=== PATIENT | male | born 1960 | race Caucasian/White ===

== ENCOUNTER 2016-11-06 | Outpatient (CLI) | payer MEDICAID | END 2016-11-06 13:31 | disposition home or self-care (01) | DX: R60.0 Localized edema (principal) ==

== ENCOUNTER 2016-11-06 11:31 | Outpatient (CLI) | payer MEDICAID | END 2016-11-06 11:32 | disposition home or self-care (01) | DX: R60.0 Localized edema (principal); I51.7 Cardiomegaly ==

== ENCOUNTER 2016-11-06 13:06 | Outpatient (CLI) | payer MEDICAID | END 2016-11-06 13:07 | disposition home or self-care (01) | DX: E66.9 Obesity, unspecified (principal); R60.0 Localized edema; I51.7 Cardiomegaly ==

== ENCOUNTER 2016-12-16 13:28 | Outpatient (CLI) | payer MEDICAID | END 2016-12-16 13:29 | disposition home or self-care (01) | DX: R60.0 Localized edema (principal); I51.7 Cardiomegaly ==

== ENCOUNTER 2017-01-31 08:00 | Outpatient (CLI) | payer MEDICAID | END 2017-01-31 23:59 | disposition home or self-care (01) | DX: I10 Essential (primary) hypertension (principal); I51.7 Cardiomegaly; I49.3 Ventricular premature depolarization; I44.0 Atrioventricular block, first degree; I77.810 Thoracic aortic ectasia; G47.33 Obstructive sleep apnea (adult) (pediatric) ==

== ENCOUNTER 2017-10-21 03:01 | Emergency (ER) | payer SELFPAY ==
[2017-10-21] MEDS ORDERED: ONDANSETRON 4 MG/2 ML VIAL IVP STA (03:29)
[2017-10-21] MEDS ORDERED: KETOROLAC 60 MG/2 ML VIAL IVP STA (03:29)
--- NOTE | 2017-10-21 03:29 | ED Physician Documentation ---
PD HPI ABD PAIN - Stated complaint Stated Complaint: ABDOMINAL PAIN - Chief complaint Chief Complaint: Abd Pain - History obtained from History obtained from: Patient, Family - History of Present Illness Timing - onset: Enter time (0200), Today Timing - duration: Minutes Timing - details: Abrupt onset, Still present in ED Pain level max: 10 Pain level now: 6 Quality: Sharp, Pain Location: LLQ Radiation: Left flank Improved by: Position Worsened by: Other (nothing) Associated symptoms: Nausea. No: Vomiting Similar symptoms before: Has not had sx before Recently seen: Not recently seen - Additional information Additional information: 57-year-old male with history of hypertension morbid obesity and peripheral edema has developed acute left-sided abdominal pain radiating to his left flank that woke him from sleep this morning. He did feel the pain was improved by putting on his left shoe but the pain has undulated and is now at about an 8. He has never had anything like this and he did not feel ill in any way when he went to bed or earlier in the week. Review of Systems Constitutional: denies: Fever, Chills, Myalgias Eyes: denies: Decreased vision Ears: denies: Ear pain Nose: denies: Congestion Throat: denies: Sore throat Cardiac: denies: Chest pain / pressure, Palpitations Respiratory: denies: Dyspnea, Cough GI: reports: Abdominal Pain, Nausea. denies: Vomiting, Constipation, Diarrhea : denies: Dysuria, Frequency Skin: denies: Rash Musculoskeletal: reports: Back pain. denies: Neck pain, Extremity pain Neurologic: denies: Generalized weakness, Focal weakness, Numbness PD PAST MEDICAL HISTORY - Past Medical History Past Medical History: No Cardiovascular: Hypertension, Other Respiratory: None Neuro: None Endocrine/Autoimmune: None GI: None : None HEENT: None Psych: None Musculoskeletal: None Derm: None - Present Medications Home Medications: Ambulatory Orders Medication Instructions Recorded Confirmed No Known Home Medications [No 10/21/17 10/21/17 Known Home Medications] - Allergies Allergies/Adverse Reactions: Allergies Allergy/AdvReac Type Severity Reaction Status Date / Time No Known Drug Allergies Allergy Verified 10/21/17 03:08 - Social History Does the pt smoke?: No Smoking Status: Never smoker PD ED PE NORMAL - Vitals Vital signs reviewed: Yes (hypertensive) - General General: Alert and oriented X 3, No acute distress, Well developed/nourished - HEENT HEENT: Atraumatic, PERRL, EOMI - Neck Neck: Supple, no meningeal sign, No bony TTP - Cardiac Cardiac: RRR, No murmur - Respiratory Respiratory: No respiratory distress, Clear bilaterally - Abdomen Abdomen: Soft, Non tender - Back Back: No CVA TTP, No spinal TTP - Derm Derm: Normal color, Warm and dry, No rash - Extremities Extremities: No deformity, No edema - Neuro Neuro: No motor deficit, No sensory deficit Eye Opening: Spontaneous Motor: Obeys Commands Verbal: Oriented GCS Score: 15 - Psych Psych: Normal mood, Normal affect Results - Vitals Vitals: Vital Signs - 24 hr 10/21/17 10/21/17 10/21/17 03:04 04:31 05:49 Temperature 36.3 C L Heart Rate 88 69 70 Respiratory 18 18 18 Rate Blood Pressure 183/120 H 139/96 H 138/94 H O2 Saturation 96 94 95 Oxygen O2 Source Room air - Labs Labs: Laboratory Tests 10/21/17 10/21/17 10/21/17 03:24 03:24 03:24 WBC 9.9 RBC 4.55 L Hgb 14.5 Hct 42.5 MCV 93.5 MCH 31.8 H MCHC 34.1 RDW 13.4 Plt Count 302 MPV 9.1 Neut # 5.3 Lymph # 3.4 Hardy # 0.7 Eos # 0.3 Baso # 0.1 Absolute Nucleated RBC 0.00 Nucleated RBC % 0.0 Sodium 142 Potassium 3.5 Chloride 106 Carbon Dioxide 27 Anion Gap 9.0 BUN 21 H Creatinine 0.8 Estimated GFR (MDRD) 100 Glucose 104 H Calcium 9.1 Total Bilirubin 0.5 AST 22 ALT 25 Alkaline Phosphatase 106 Troponin I 0.04 Total Protein 8.2 Albumin 4.4 Globulin 3.8 Albumin/Globulin Ratio 1.2 Lipase 19 L Urine Color Urine Clarity Urine pH Ur Specific [place] Urine Protein Urine Glucose (UA) Urine Ketones Urine Occult Blood Urine Nitrite Urine Bilirubin Urine Urobilinogen Ur Leukocyte Esterase Urine RBC Urine WBC Ur Squamous Epith Cells Urine Bacteria Urine Mucus Ur Microscopic Review Urine Culture Comments 10/21/17 04:52 WBC RBC Hgb Hct MCV MCH MCHC RDW Plt Count MPV Neut # Lymph # Hardy # Eos # Baso # Absolute Nucleated RBC Nucleated RBC % Sodium Potassium Chloride Carbon Dioxide Anion Gap BUN Creatinine Estimated GFR (MDRD) Glucose Calcium Total Bilirubin AST ALT Alkaline Phosphatase Troponin I Total Protein Albumin Globulin Albumin/Globulin Ratio Lipase Urine Color YELLOW Urine Clarity CLEAR Urine pH 6.0 Ur Specific [place] >=1.030 H Urine Protein NEGATIVE Urine Glucose (UA) NEGATIVE Urine Ketones NEGATIVE Urine Occult Blood LARGE H Urine Nitrite NEGATIVE Urine Bilirubin NEGATIVE Urine Urobilinogen 0.2 (NORMAL) Ur Leukocyte Esterase NEGATIVE Urine RBC TNTC H Urine WBC 0-3 Ur Squamous Epith Cells RARE Squamous Urine Bacteria Rare Urine Mucus Few Strands Ur Microscopic Review INDICATED Urine Culture Comments NOT INDICATED - Rads (name of study) CT abdomen pelvis without Radiology: Prelim report reviewed (Impression: 1. There is a 3 mm stone in the urinary bladder which has presumably has passed from the left ureter. 2. Small nonobstructing stones in both kidneys.), EMP read indepedently, See rad report Procedures - Bedside sono Bedside sono by EMP: With use of bedside ultrasound the left kidney is imaged with evidence of mild hydronephrosis and it is sonographically nontender. PD MEDICAL DECISION MAKING - ED course Complexity details: reviewed results, re-evaluated patient, considered differential, d/w patient, d/w family ED course: 57-year-old male with acute left flank pain Is given an injection of Toradol prior to going to CT scan. While at the CT scan he had resolution of his pain. The CT scan shows a stone in the bladder. About 3 mm. Departure - Departure Disposition: 01 Home, Self Care Clinical Impression: Ureterolithiasis Condition: Stable Instructions: ED Stone Renal Passed Follow-Up: Neel Hadley PA-C [Primary Care Provider] - Discharge Date/Time: 10/21/17 05:51
[2017-10-21 03:32] LABS: BASOPHILS # (AUTO) 0.1 10^3/uL (0.0-0.1); BASOPHILS % (AUTO) 1.2 %; EOSINOPHILS # (AUTO) 0.3 10^3/uL (0.0-0.7); EOSINOPHILS % (AUTO) 3.4 %; HCT - HEMATOCRIT 42.5 % (42.0-52.0); HGB - HEMOGLOBIN 14.5 g/dL (14.0-18.0); LYMPHOCYTES # (AUTO) 3.4 10^3/uL (1.5-3.5); LYMPHOCYTES % (AUTO) 34.3 %; MEAN CORPUSCULAR HEMOGLOBIN 31.8 pg (27.0-31.0); MEAN CORPUSCULAR HGB CONC 34.1 g/dL (32.0-36.0); MEAN CORPUSCULAR VOLUME 93.5 fL (80.0-94.0); MEAN PLATELET VOLUME 9.1 fL (7.4-11.4); MONOCYTES # (AUTO) 0.7 10^3/uL (0.0-1.0); MONOCYTES % (AUTO) 7.5 %; NEUTROPHILS # (AUTO) 5.3 10^3/uL (1.5-6.6); NEUTROPHILS % (AUTO) 53.6 %; RED BLOOD COUNT 4.55 10^6/uL (4.70-6.10); RED CELL DISTRIBUTION WIDTH 13.4 % (12.0-15.0); UNCORRECTED WHITE BLOOD COUNT 9.9 x10^3/uL; WHITE BLOOD COUNT 9.9 x10^3/uL (4.8-10.8)
[2017-10-21 03:44] LABS: ALBUMIN/GLOBULIN RATIO 1.2 (1.0-2.2); BILIRUBIN,TOTAL 0.5 mg/dL (0.2-1.0); CALCIUM 9.1 mg/dL (8.5-10.3); CREATININE 0.8 mg/dL (0.6-1.2); POTASSIUM 3.5 mmol/L (3.5-5.0); TOTAL PROTEIN 8.2 g/dL (6.7-8.2)
--- NOTE | 2017-10-21 04:04 | CT Preliminary Report ---
Exam: CT ABDOMEN/PELVIS W/O IMPRESSION: 1. There is a 3 mm stone in the urinary bladder which presumably has passed from the left ureter. 2. Small nonobstructing stones in both kidneys. [facility] SITE ID: [id number]
--- NOTE | 2017-10-21 04:07 | CT Report ---
EXAM: CT ABDOMEN AND PELVIS (CT KUB) EXAM DATE: 10/21/2017 03:51 AM. CLINICAL HISTORY: Left flank pain . COMPARISONS: None. TECHNIQUE: Routine axial helical CT imaging was performed through the abdomen and pelvis without IV c ontrast. Reconstructions: Coronal and sagittal. In accordance with CT protocol optimization, one or more of the following dose reduction techniques w ere utilized for this exam: automated exposure control, adjustment of mA and/or KV based on patient s ize, or use of iterative reconstructive technique. FINDINGS: Lung Bases: Unremarkable. Right Kidney/Ureter: Approximately 3 or 4 nonobstructing renal stones measuring up to 3 mm. No ureter al stone or obstructive uropathy seen. Left Kidney/Ureter: At least one nonobstructing renal stone measuring about 3 mm. No ureteral stones seen. Other Solid Organs: Noncontrast images of the solid organs are grossly unremarkable. Gallbladder/Bile Ducts: Unremarkable. Peritoneal Cavity: Colonic diverticulosis without evidence of diverticulitis. No bowel obstruction se en. No free air or free fluid. No lymphadenopathy seen. Appendix appears normal. Pelvic Organs: There is a 3 mm stone in the urinary bladder. Visualized pelvic organs are otherwise u nremarkable. Vasculature: Very mild atherosclerosis. No aortic aneurysm. Other: Degenerative changes in the spine. Mild spinal stenosis. IMPRESSION: 1. There is a 3 mm stone in the urinary bladder which presumably has passed from the left ureter. 2. Small nonobstructing stones in both kidneys. [facility] Referring Provider Line: [phone] SITE ID: [id number]
[2017-10-21] MEDS ORDERED: SODIUM CHLORIDE 0.9% 1,000 ML IV ONE (04:12)
[2017-10-21 04:58] LABS: BILIRUBIN,URINE NEGATIVE (NEGATIVE)
[2017-10-21 04:59] LABS: UA w/ MICROSCOPIC CHARGE YES
[2017-10-21 05:03] LABS: UR CULTURE IF IND NOT INDICATED; WBC,URINE 0-3 /HPF (0-3)
[2017-10-21 05:50] VITALS: BP 138/94
== END 2017-10-21 05:51 | disposition home or self-care (01) ==
LOC: ED 03:01
DX: N20.2 Calculus of kidney with calculus of ureter (principal); N21.0 Calculus in bladder; I10 Essential (primary) hypertension; E66.01 Morbid (severe) obesity due to excess calories
CPT/HCPCS: 36415; 74176; 80053; 81001; 81003; 83690; 84484; 85025; 87086; 96374; 96375; 99283

== ENCOUNTER 2017-11-22 18:07 | Emergency (ER) | payer SELFPAY ==
--- NOTE | 2017-11-22 19:16 | ED Physician Documentation ---
PD HPI ABD PAIN - Stated complaint Stated Complaint: NAUSEA/ABD/BX PX - Chief complaint Chief Complaint: Abd Pain - History obtained from History obtained from: Patient - History of Present Illness Timing - onset: How many hours ago (6), Today Timing - duration: Hours (6) Timing - details: Abrupt onset, Still present, Constant Quality: Aching, Sharp, Pain Location: RLQ Radiation: Right flank Associated symptoms: Nausea, Vomiting. No: Fever, Diarrhea, Constipation, Dysuria Similar symptoms before: Diagnosis (had similar with left ureteral stone recently and it passed in few hours. He had CT at the time and there were other renal stones, with largest being 3-4 mm.) Review of Systems Constitutional: denies: Fever, Chills Cardiac: denies: Chest pain / pressure Respiratory: denies: Dyspnea, Cough GI: reports: Abdominal Pain, Nausea, Vomiting. denies: Diarrhea : denies: Dysuria, Frequency PD PAST MEDICAL HISTORY - Past Medical History Cardiovascular: Hypertension, Other Respiratory: None Neuro: None Endocrine/Autoimmune: None GI: None : None HEENT: None Psych: None Musculoskeletal: None Derm: None - Present Medications Home Medications: Ambulatory Orders Medication Instructions Recorded Confirmed Dexamethasone [Decadron] 4 mg PO DAILY #5 tablet 11/22/17 Multivitamin [Multiple Vitamins] 1 each PO DAILY 11/22/17 11/22/17 Naproxen [Naprosyn] 500 mg PO BID PRN #20 tablet 11/22/17 Ondansetron Odt [Zofran] 4 mg TL Q6H PRN #15 tablet 11/22/17 Oxycodone HCl/Acetaminophen 1 each PO Q6H PRN #20 tablet 11/22/17 [Percocet 5-325 mg Tablet] Tamsulosin [Flomax] 0.4 mg PO DAILY #5 capsule 11/22/17 - Allergies Allergies/Adverse Reactions: Allergies Allergy/AdvReac Type Severity Reaction Status Date / Time No Known Drug Allergies Allergy Verified 11/22/17 18:15 - Social History Does the pt smoke?: No Smoking Status: Never smoker PD ED PE NORMAL - Vitals Vital signs reviewed: Yes - General General: Alert and oriented X 3, Well developed/nourished, Other (appears in considerable pain. Pacing and standing in the exam room. ) - HEENT HEENT: Pharynx benign - Neck Neck: Supple, no meningeal sign, No adenopathy - Cardiac Cardiac: RRR, No murmur - Respiratory Respiratory: Clear bilaterally - Abdomen Abdomen: Soft, Non tender, Non distended, No organomegaly - Male Male : Deferred - Rectal Rectal: Deferred - Back Back: No spinal TTP, Other (right CVA tenderness to percussion. ) - Derm Derm: Normal color, Warm and dry, No rash - Neuro Neuro: Alert and oriented X 3, No motor deficit, Normal speech Results - Vitals Vitals: Oxygen O2 Source Room air Oxygen Flow Rate 2 - Labs Labs: Laboratory Tests 11/22/17 20:45 Urine Color YELLOW Urine Clarity CLEAR Urine pH 5.5 Ur Specific [place] >=1.030 H Urine Protein NEGATIVE Urine Glucose (UA) NEGATIVE Urine Ketones TRACE Urine Occult Blood NEGATIVE Urine Nitrite NEGATIVE Urine Bilirubin NEGATIVE Urine Urobilinogen 0.2 (NORMAL) Ur Leukocyte Esterase NEGATIVE Ur Microscopic Review NOT INDICATED Urine Culture Comments NOT INDICATED PD MEDICAL DECISION MAKING - ED course Complexity details: reviewed old records, considered differential (has pain c/w renal colic and had passed stone on other side recently, with CT showing largest stones 3-4 mm. He improved with IV meds, and we talked about imaging and shared decision that did not need to repeat CT at this point. ), d/w patient Departure - Departure Disposition: 01 Home, Self Care Clinical Impression: Renal colic, Ureterolithiasis Condition: Stable Record reviewed to determine appropriate education?: Yes Instructions: ED Stone Renal W Colic Follow-Up: Neel Hadley PA-C [Primary Care Provider] - [facility] [Provider Group] Prescriptions: Dexamethasone [Decadron] 4 mg PO DAILY #5 tablet Naproxen [Naprosyn] 500 mg PO BID PRN #20 tablet PRN Reason: Pain Ondansetron Odt [Zofran] 4 mg TL Q6H PRN #15 tablet PRN Reason: Nausea / Vomiting Oxycodone HCl/Acetaminophen [Percocet 5-325 mg Tablet] 1 each PO Q6H PRN #20 tablet PRN Reason: Pain Tamsulosin [Flomax] 0.4 mg PO DAILY #5 capsule Comments: Drink lots of fluids but no reason to excessively hydrate. Use naproxen twice daily if needed for pain and add Percocet if needed. For inflammation take Decadron daily for the next few days until the stone passes. Tamsulosin tries to reduce ureter spasms for midsize stones like this and take it daily for the next several days until the stone passes. Add ondansetron if needed for nausea. Follow-up with your primary care or urology if not passed the stone over the next 2-3 days. Return sooner if severe symptoms again. Discharge Date/Time: 11/22/17 21:24
[2017-11-22] MEDS ORDERED: KETOROLAC 30 MG/ML VIAL IVP STA (19:27)
[2017-11-22] MEDS ORDERED: ONDANSETRON 4 MG/2 ML VIAL IVP STA (19:27)
[2017-11-22] MEDS ORDERED: HYDROmorphone 1 MG/ML SYRINGE IVP STA (19:27)
[2017-11-22] MEDS ORDERED: LIDOCAINE-MPF 2% 10 ML in SODIUM CHLORIDE 0.9% 50 ML IV STA (19:33)
[2017-11-22] MEDS ORDERED: SODIUM CHLORIDE 0.9% 1,000 ML IV ONE (19:34)
[2017-11-22] MEDS ORDERED: ONDANSETRON 4 MG/2 ML VIAL ONE (20:02)
[2017-11-22] MEDS ORDERED: LIDOCAINE-MPF 2% 5 ML VIAL ONE (20:03)
[2017-11-22 20:44] VITALS: BP 153/96
[2017-11-22] MEDS ORDERED: oxyCODONE/ACET 5/325 Prepack 4 PO STA (20:54)
[2017-11-22] MEDS ORDERED: ONDANSETRON ODT 4 MG Prepack 2 TL PRN (20:54)
[2017-11-22] MEDS ORDERED: TAMSULOSIN 0.4 MG CAPSULE PO STA (20:55)
[2017-11-22] MEDS ORDERED: DEXAMETHASONE 10 MG/ML VIAL IVP STA (20:55)
[2017-11-22 21:06] LABS: BILIRUBIN,URINE NEGATIVE (NEGATIVE); GLUCOSE, URINE (UA) NEGATIVE (NEGATIVE); KETONES,URINE (UA) TRACE mg/dL (NEGATIVE); LEUKOCYTE ESTERASE, URINE NEGATIVE (NEGATIVE); NITRITE,URINE NEGATIVE (NEGATIVE); OCCULT BLOOD,URINE NEGATIVE (NEGATIVE); PH,URINE 5.5 PH (5.0-7.5); PROTEIN,URINE NEGATIVE (NEGATIVE); UROBILINOGEN,URINE 0.2 (NORMAL) E.U./dL (NORMAL)
[2017-11-22 21:07] LABS: CLARITY,URINE CLEAR (CLEAR)
== END 2017-11-22 21:24 | disposition home or self-care (01) ==
LOC: ED 18:07
DX: N28.89 Other specified disorders of kidney and ureter (principal); I10 Essential (primary) hypertension
CPT/HCPCS: 36415; 81003; 99284; A9270; J1170; J7040; 81001; 87086

== ENCOUNTER 2019-05-19 09:59 | Outpatient (CLI) | payer OTHER ==
[2019-05-19 17:46] LABS: ALBUMIN 4.3 g/dL (3.2-5.5); ALBUMIN/GLOBULIN RATIO 1.1 (1.0-2.2); ALKALINE PHOSPHATASE 88 IU/L (42-121); ALT ALANINE AMINOTRANSFERASE 20 IU/L (10-60); AST ASPARTATE AMINOTRANSFERASE 21 IU/L (10-42); BILIRUBIN,TOTAL 0.7 mg/dL (0.2-1.0); BUN - BLOOD UREA NITROGEN 19 mg/dL (6-20); CARBON DIOXIDE - CO2 26 mmol/L (21-32); CHLORIDE 105 mmol/L (101-111); CHOL/HDL RATIO 3.4 (<5.0); CHOLESTEROL 172 mg/dL; CREATININE 0.8 mg/dL (0.6-1.2); GFR - MDRD 99 (>89); GLUCOSE 105 mg/dL (70-100); HDL CHOLESTEROL 51 mg/dL; LDL CHOLESTEROL,CALCULATED 101 mg/dL; SODIUM 141 mmol/L (135-145); TOTAL PROTEIN 8.3 g/dL (6.7-8.2); VLDL CHOLESTEROL 20 mg/dL
== END 2019-05-19 10:00 | disposition home or self-care (01) ==
LOC: LAB.S 09:59
PROVIDERS: ATTEND Internal Medicine
DX: E78.5 Hyperlipidemia, unspecified (principal)
CPT/HCPCS: 36415; 80053; 80061; 83721

== ENCOUNTER 2020-04-05 12:42 | Emergency (ER) | payer OTHER ==
[2020-04-05 12:54] VITALS: BP 173/104
--- NOTE | 2020-04-05 13:24 | ED Physician Documentation ---
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 Caused pain and pop feeling on lateral ribs/chest. Has continued with pain locally with lifting, reaching, deep breathing and palpation.) Timing - details: Abrupt onset Quality: Sharp, Pain. No: Pressure, Tightness Location: Left chest (midaxillary line about level of rib 6 or 7) Worsened by: No: Exertion, Inspiration Associated symptoms: No: Shortness of air, Nausea, Vomiting, Feeling faint / dizzy Similar symptoms before: Diagnosis (feels similar to rib fractures from years back.) Recently seen: Not recently seen Review of Systems Constitutional: denies: Fever, Chills Nose: denies: Rhinorrhea / runny nose, Congestion Throat: denies: Sore throat Cardiac: reports: Chest pain / pressure. denies: Palpitations, Pedal edema, Calf pain Respiratory: denies: Dyspnea, Cough GI: denies: Abdominal Pain, Nausea, Vomiting PD PAST MEDICAL HISTORY - Past Medical History Cardiovascular: Hypertension, Other Respiratory: None Endocrine/Autoimmune: None GI: None : None HEENT: None Psych: None Musculoskeletal: None Derm: None - Past Surgical History Past Surgical History: Yes - Present Medications Home Medications: Ambulatory Orders Medication Instructions Recorded Confirmed Multivitamin [Multiple Vitamins] 1 each PO DAILY 11/22/17 11/22/17 Naproxen [Naprosyn] 500 mg PO BID PRN #20 tablet 11/22/17 Ondansetron Odt [Zofran] 4 mg TL Q6H PRN #15 tablet 11/22/17 Oxycodone HCl/Acetaminophen 1 each PO Q6H PRN #20 tablet 11/22/17 [Percocet 5-325 mg Tablet] Tamsulosin [Flomax] 0.4 mg PO DAILY #5 capsule 11/22/17 dexAMETHasone [Decadron] 4 mg PO DAILY #5 tablet 11/22/17 - Allergies Allergies/Adverse Reactions: Allergies Allergy/AdvReac Type Severity Reaction Status Date / Time No Known Drug Allergies Allergy Verified 04/05/20 12:54 - Social History Does the pt smoke?: No Smoking Status: Never smoker Does the pt drink ETOH?: No Does the pt have substance abuse?: No - Immunizations Immunizations are current?: Yes - POLST Patient has POLST: No PD ED PE NORMAL - Vitals Vital signs reviewed: Yes - General General: Alert and oriented X 3, No acute distress, Well developed/nourished - Cardiac Cardiac: RRR, No murmur - Respiratory Respiratory: No respiratory distress, Clear bilaterally, Other (chestwall tenderness without crapitance left midaxillary line about rib 6-7) - Abdomen Abdomen: Soft, Non tender - Derm Derm: Normal color, Warm and dry - Extremities Extremities: Normal ROM s pain, No edema, No calf tenderness / cord - Neuro Neuro: Alert and oriented X 3, No motor deficit, Normal speech Results - Vitals Vitals: Vital Signs - 24 hr 04/05/20 12:49 Temperature 36.8 C Heart Rate 78 Respiratory 18 Rate Blood Pressure 173/104 H O2 Saturation 97 Oxygen O2 Source Room air - Rads (name of study) left ribs Radiology: Prelim report reviewed (nondisplaced fracture lateral rib 6), See rad report PD MEDICAL DECISION MAKING - ED course Complexity details: reviewed results, considered differential, d/w patient Departure - Departure Disposition: 01 Home, Self Care Clinical Impression: Rib fracture Qualifiers: Encounter type: initial encounter Rib fracture type: single rib Fracture type: closed Laterality: left Qualified Code(s): S22.32XA - Fracture of one rib, left side, initial encounter for closed fracture Condition: Stable Record reviewed to determine appropriate education?: Yes Instructions: ED Fx Rib Follow-Up: Mina Marmolejo MD [Primary Care Provider] - Comments: There is a single rib fracture on your x-ray. This should heal with conservative treatment of just avoiding activities that make it hurt. You can use some anti-inflammatory such as ibuprofen or naproxen 2-3 times a day regularly for the next several days to week to help take the edge off the discomfort. Add Tylenol if needed. This should improve steadily over the next week or 2 but take about 3 to 4 weeks to fully heal up. Forms: Activity restrictions Discharge Date/Time: 04/05/20 15:37
[2020-04-05] MEDS ORDERED: ACETAMINOPHEN 325 MG TABLET PO STA (13:53)
[2020-04-05] MEDS ORDERED: NAPROXEN 250 MG TABLET PO STA (13:53)
--- NOTE | 2020-04-05 15:09 | XRAY Report ---
Reason: left midaxillary ribs/chest injury Procedure Date: 04/05/2020 Accession Number: [id number] / [id number] Procedure: XR - Ribs w/PA Chest LT CPT Code: Final Report FULL RESULT: PROCEDURE: Ribs w/PA Chest LT INDICATIONS: left midaxillary ribs/chest injury TECHNIQUE: 4 views of the left ribs were acquired, along with a single view chest. COMPARISON: Chest radiograph dated 11/06/2016 FINDINGS: Surgical changes and devices: None. Bones and chest wall: Subtle cortical irregularity involving right lateral sixth rib is seen concerning for a nondisplaced right lateral sixth rib fracture. No other fracture or dislocation is seen. No suspicious bony lesions. Overlying soft tissues appear unremarkable. Lungs and pleura: No pleural effusions or pneumothorax. Lungs appear clear. Mediastinum: Mediastinal contours appear normal. Heart size is enlarged. IMPRESSION: Finding is concerning for subtle nondisplaced right lateral sixth rib fracture. No other fracture or dislocation. No acute cardiopulmonary pathology. Reviewed by: Joaquin Nassar MD on 04/05/2020 3:08 PM PDT Approved by: Joauqin Nassar MD on 04/05/2020 3:08 PM PDT Station ID: [id number]
== END 2020-04-05 15:37 | disposition home or self-care (01) ==
LOC: ED 12:42
DX: S22.32XA Fracture of one rib, left side, initial encounter for closed fracture (principal); X50.9XXA Other and unspecified overexertion or strenuous movements or postures, initial encounter; Y93.H2 Activity, gardening and landscaping; Y99.0 Civilian activity done for income or pay; I10 Essential (primary) hypertension
CPT/HCPCS: 99283; 99284

== ENCOUNTER 2020-07-22 07:10 | Observation (INO) | payer OTHER ==
[2020-07-22] MEDS ORDERED: FUROSEMIDE 20 MG/2 ML VIAL IVP STA (07:48)
[2020-07-22] MEDS ORDERED: METOPROLOL 5 MG/5 ML VIAL IVP STA ×2 (07:48→09:05)
[2020-07-22] MEDS ORDERED: DEXAMETHASONE 10 MG/ML VIAL IVP STA (07:51)
[2020-07-22] MEDS ORDERED: ALBUTEROL 1 PUFF INH STA (07:51)
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
--- NOTE | 2020-07-22 08:10 | XRAY Report ---
PROCEDURE: Chest 1 View X-Ray INDICATIONS: Chest pain TECHNIQUE: One view of the chest was acquired. COMPARISON: 04/05/2020 radiographs and 11/06/2016 chest radiograph. FINDINGS: Surgical changes and devices: None. Lungs and pleura: Increased interstitial and air space opacities, particularly in the lung bases. Asy mmetric right hilar fullness. Bilateral pleural effusions. Mediastinum: Enlarged cardiac mediastinal silhouette which is a new finding from the prior study. Per icardial effusion cannot be excluded. Bones and chest wall: No suspicious bony lesions. Overlying soft tissues appear unremarkable. IMPRESSION: Findings which are suggestive of cardiogenic pulmonary edema, moderate to severe. There may be a raheem cardial effusion is well. CT chest imaging recommended. Reviewed by: Roc Mckenzie MD on 07/22/2020 8:09 AM PDT Approved by: Roc Mckenzie MD on 07/22/2020 8:09 AM PDT Station ID: [id number]
[2020-07-22 08:20] LABS: ALBUMIN 3.7 g/dL (3.2-5.5); ALBUMIN/GLOBULIN RATIO 0.9 (1.0-2.2); BILIRUBIN,TOTAL 0.8 mg/dL (0.2-1.0); CREATININE 1.1 mg/dL (0.6-1.2); MAGNESIUM 2.1 mg/dL (1.7-2.8); TOTAL PROTEIN 7.6 g/dL (6.7-8.2)
[2020-07-22 08:24] LABS: BASOPHILS # (AUTO) 0.1 10^3/uL (0.0-0.1); BASOPHILS % (AUTO) 0.7 %; EOSINOPHILS # (AUTO) 0.1 10^3/uL (0.0-0.7); EOSINOPHILS % (AUTO) 1.6 %; HGB - HEMOGLOBIN 13.9 g/dL (14.0-18.0); LYMPHOCYTES # (AUTO) 1.5 10^3/uL (1.5-3.5); LYMPHOCYTES % (AUTO) 18.1 %; MEAN CORPUSCULAR HEMOGLOBIN 31.4 pg (27.0-31.0); MEAN PLATELET VOLUME 11.5 fL (7.4-11.4); MONOCYTES # (AUTO) 0.6 10^3/uL (0.0-1.0); MONOCYTES % (AUTO) 7.2 %; NEUTROPHILS # (AUTO) 6.2 10^3/uL (1.5-6.6); NEUTROPHILS % (AUTO) 72.2 %; PLT - PLATELET COUNT 286 10^3/uL (130-450); RED BLOOD COUNT 4.43 10^6/uL (4.70-6.10); RED CELL DISTRIBUTION WIDTH 14.1 % (12.0-15.0); WHITE BLOOD COUNT 8.5 x10^3/uL (4.8-10.8)
[2020-07-22] MEDS ORDERED: ONDANSETRON ODT 4 MG TABLET TL PRN (08:57)
[2020-07-22] MEDS ORDERED: ONDANSETRON 4 MG/2 ML VIAL IVP PRN (08:57)
[2020-07-22] MEDS ORDERED: SODIUM CHLORIDE FLUSH 0.9% 10 ML SYRINGE IVP PRN (08:57)
[2020-07-22] MEDS ORDERED: oxyCODONE 5 MG TABLET PO PRN (08:57)
[2020-07-22] MEDS ORDERED: ACETAMINOPHEN 325 MG TABLET PO PRN (08:57)
[2020-07-22] MEDS ORDERED: FUROSEMIDE 40 MG/4 ML VIAL IVP STA (09:05)
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
[2020-07-22] MEDS: METOPROLOL TARTRATE 25 MG TABLET PO SCH ×2 (11:32→21:22)
[2020-07-22] MEDS: ENOXAPARIN 40 MG/0.4 ML SYRINGE SUBQ SCH (11:33)
[2020-07-22] MEDS: SODIUM CHLORIDE FLUSH 0.9% 10 ML SYRINGE IVP SCH ×2 (11:33→17:11)
[2020-07-22] MEDS ORDERED: FUROSEMIDE 20 MG/2 ML VIAL IVP ONE (17:00)
[2020-07-22] MEDS ORDERED: IOVERSOL 320 100 ML VIAL IVP ONE ×2 (19:42→22:29)
[2020-07-23] MEDS: SODIUM CHLORIDE FLUSH 0.9% 10 ML SYRINGE IVP SCH ×2 (00:22→08:47)
[2020-07-23 06:30] LABS: BASOPHILS % (AUTO) 0.3 %; EOSINOPHILS # (AUTO) 0.1 10^3/uL (0.0-0.7); EOSINOPHILS % (AUTO) 0.5 %; HGB - HEMOGLOBIN 14.4 g/dL (14.0-18.0); LYMPHOCYTES # (AUTO) 2.3 10^3/uL (1.5-3.5); LYMPHOCYTES % (AUTO) 17.4 %; MEAN CORPUSCULAR HEMOGLOBIN 31.9 pg (27.0-31.0); MEAN CORPUSCULAR HGB CONC 32.9 g/dL (32.0-36.0); MEAN CORPUSCULAR VOLUME 97.1 fL (80.0-94.0); MEAN PLATELET VOLUME 11.3 fL (7.4-11.4); MONOCYTES % (AUTO) 7.3 %; NEUTROPHILS # (AUTO) 9.7 10^3/uL (1.5-6.6); NEUTROPHILS % (AUTO) 74.1 %; PLT - PLATELET COUNT 279 10^3/uL (130-450); RED BLOOD COUNT 4.51 10^6/uL (4.70-6.10); WHITE BLOOD COUNT 13.1 x10^3/uL (4.8-10.8)
[2020-07-23 06:42] LABS: CREATININE 1.1 mg/dL (0.6-1.2); MAGNESIUM 2.2 mg/dL (1.7-2.8); PHOSPHORUS 4.2 mg/dL (2.5-4.6)
[2020-07-23] MEDS: METOPROLOL TARTRATE 25 MG TABLET PO SCH (08:42)
[2020-07-23] MEDS: ENOXAPARIN 40 MG/0.4 ML SYRINGE SUBQ SCH (08:42)
[2020-07-23 09:20] LABS: HEMOGLOBIN A1c% 5.9 % (4.27-6.07)
--- NOTE | 2020-07-23 09:33 | CT Report ---
PROCEDURE: ANGIO CHEST W/WO INDICATIONS: Afib. Tachycardia. Rib fracture. CONTRAST: IV CONTRAST: Optiray 320 ml: 100 PO CONTRAST: *NO PO CONTRAST TECHNIQUE: After the administration of intravenous contrast, 2 mm thick sections acquired from the pulmonary api leesa to the posterior costophrenic angles. 3-dimensional maximum intensity projection (MIP) coronal a nd sagittal reformats were then acquired through the thorax. For radiation dose reduction, the follow ing was used: automated exposure control, adjustment of mA and/or kV according to patient size. COMPARISON: No prior chest CTs are available at the time of this study. Correlation is made with the accompanying chest x-ray, 07/22/2020. Correlation is also made with this plain films with RIBS 04/05/20 and transverse radiograph 11/06/2016 FINDINGS: Image quality: Excellent. Pulmonary arteries: Pulmonary arteries are normal in size, and demonstrate no intraluminal filling d efects to suggest central pulmonary embolism. Lungs and pleura: Small bilateral pleural effusions are seen, with associated presumed overlying atel ectasis. There is no pneumothorax. No nighat focal infiltrates are seen. Central and peripheral airway s are patent. Mediastinum: Heart size is mildly enlarged, without pericardial effusion. No mediastinal or hilar a denopathy. Thoracic aorta is normal in caliber and enhancement. Esophagus is normal in caliber, wit hout hiatal hernia. Bones and chest wall: No suspicious bony lesions. Age-appropriate degenerative changes are seen. Ribs and thoracic spine appear intact throughout. The thyroid is normal. No axillary or supraclavic ular adenopathy. Abdomen: There is a mild amount of reflux of contrast seen into the inferior vena cava and into the hepatic veins. A 1 to 2 mm nonobstructing left-sided kidney stone is seen on series 5 image 172. Visu alized upper abdominal solid organs appear normal in the early arterial phase of enhancement. IMPRESSION: Negative for pulmonary embolism There is mild cardiomegaly and reflux of contrast can be seen into the inferior vena cava and into th e hepatic veins. Please correlate with potential CHF. Small bilateral pleural effusions are seen, with overlying presumed atelectasis. Incidental note is made of: 1 - 2 mm nonobstructing left-sided kidney stone Note: No significant discrepancy from the preliminary report. Reviewed by: Erasmo Hadley MD on 07/23/2020 8:32 AM AKDT Approved by: Erasmo Hadley MD on 07/23/2020 8:32 AM SHIRLENE Station ID: [id number]
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
[2020-07-23 12:21] VITALS: BP 117/81
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
== END 2020-07-23 12:40 | disposition home or self-care (01) ==
LOC: ED 07:10 → MS2 08:57
PROVIDERS: ADMIT Specialist; ATTEND Specialist
DX: I48.91 Unspecified atrial fibrillation (principal); I11.0 Hypertensive heart disease with heart failure; I50.23 Acute on chronic systolic (congestive) heart failure; R73.9 Hyperglycemia, unspecified; F43.23 Adjustment disorder with mixed anxiety and depressed mood; K62.5 Hemorrhage of anus and rectum; E66.01 Morbid (severe) obesity due to excess calories; Z68.30 Body mass index [BMI] 30.0-30.9, adult; Z91.128 Patient's intentional underdosing of medication regimen for other reason; Z91.19 Patient's noncompliance with other medical treatment and regimen; F10.21 Alcohol dependence, in remission; J45.20 Mild intermittent asthma, uncomplicated; H54.7 Unspecified visual loss; H91.90 Unspecified hearing loss, unspecified ear; Z20.828 Contact with and (suspected) exposure to other viral communicable diseases; Z79.899 Other long term (current) drug therapy; Z83.3 Family history of diabetes mellitus; Z87.891 Personal history of nicotine dependence
CPT/HCPCS: 36415; 71045; 71275; 80048; 83036; 83690; 83735; 83880; 84100; 84484; 85025; 85379; 87635; 93005; 94640; 94664; 96372; 96374; 96375; 96376; 99284; 99285; A9270; G0378; J1650; Q9967; 80053; 84443

== ENCOUNTER 2020-08-30 16:29 | Outpatient (CLI) | payer OTHER ==
[2020-08-30 20:10] LABS: CALCIUM 9.1 mg/dL (8.5-10.3); CREATININE 1.1 mg/dL (0.6-1.2)
== END 2020-08-30 16:30 | disposition home or self-care (01) ==
LOC: LAB.S 16:29
PROVIDERS: ATTEND Internal Medicine Cardiovascular Disease
DX: I48.19 Other persistent atrial fibrillation (principal)
CPT/HCPCS: 36415; 80048

== ENCOUNTER 2020-09-06 09:07 | Outpatient (CLI) | payer OTHER | END 2020-09-06 09:08 | disposition home or self-care (01) | LOC: LAB.S 09:07 | PROVIDERS: ATTEND Internal Medicine | DX: R63.5 Abnormal weight gain (principal) | CPT/HCPCS: 36415; 84443 ==

== ENCOUNTER 2020-10-23 10:25 | Outpatient (CLI) | payer OTHER | END 2020-10-23 10:26 | disposition short-term general hospital (02) | LOC: EMS 10:25 | PROVIDERS: ATTEND Surgery | DX: R41.82 Altered mental status, unspecified (principal); R06.82 Tachypnea, not elsewhere classified | CPT/HCPCS: A0425; A0427 ==